=== PATIENT | female | born 1980 | race Caucasian/White ===

== ENCOUNTER 2018-01-17 12:31 | Emergency (ER) | payer MEDICAID ==
[~2018-01-17] VITALS: Ht 162.6 cm; Wt 79.4 kg
[2018-01-17 12:39] VITALS: Ht 162.6 cm; Wt 79.4 kg
[2018-01-17 15:22] VITALS: BP 111/80
== END 2018-01-17 15:22 | disposition home or self-care (01) ==
LOC: ED 12:31
DX: N12 Tubulo-interstitial nephritis, not specified as acute or chronic (principal); K90.0 Celiac disease
CPT/HCPCS: J0696; J1885